=== PATIENT | male | born 1965 | race Caucasian/White ===

== ENCOUNTER 2020-01-27 17:47 | Emergency (ER) | payer MEDICARE, SELFPAY ==
[2020-01-27] VITALS (8 sets, daily range): BP systolic 105–135; BP diastolic 58–82; PULSE 105–131; RESP 16–23; TEMP 36.8–36.9; O2SAT 94–97
--- NOTE | ~2020-01-27 | XR_ITS ---
EXAMINATION: XR chest 1V portable EXAM DATE: 01/27/2020 18:26 INDICATION: Shortness of breath and weakness. TECHNIQUE: Portable AP frontal chest x-ray was obtained. There is no prior study for comparison. FINDINGS: There is a right-sided portacatheter overlying expected position. Linear bibasilar opacitie s most consistent with multifocal subsegmental atelectasis. The cardiomediastinal silhouette is promi nent but magnified on this AP technique. There is no pneumothorax suspected. There are no pleural eff usions. There are no osseous abnormalities identified. There is aortic arteriosclerosis. IMPRESSION: 1. Scattered linear bibasilar opacities likely atelectasis. Reviewed, dictated and finalized at location A.
--- NOTE | 2020-01-27 18:01 | ECG_ITS ---
Measurements Intervals [place] Rate: 109 P: 44 SD: 144 QRS: 99 QRSD: 84 T: 65 QT: 321 QTc: 433 Interpretive Statements SINUS TACHYCARDIA FREQUENT VENTRICULAR PREMATURE COMPLEXES RIGHT AXIS DEVIATION LOW QRS VOLTAGE IN PRECORDIAL LEADS BORDERLINE R WAVE PROGRESSION, ANTERIOR LEADS BASELINE WANDER- V3 ABNORMAL ECG Electronically Signed On 01-28-2020 7:04:50 CDT by Kiran Ordaz D.O.
[2020-01-27 18:15] LABS: Basophils Percent Auto 0.2 % (0.2-1.2); Eosinophils Absolute Auto 0.1 K/mm3 (0-0.3); Eosinophils Percent Auto 0.6 % (0-4.4); Hematocrit 37.2 % (42.0-52.0); Hemoglobin 12.5 g/dL (14.0-18.0); Immature Granulocyte Absolute 0.03 K/mm3 (0.00-0.031); Immature Granulocyte Percent A 0.3 % (0-0.5); Lymphocytes Absolute Auto 0.36 K/mm3 (0.9-3.2); Lymphocytes Percent Auto 4.2 % (18.3-44.2); Mean Corpuscular HGB Conc 33.6 g/dl (32-36); Mean Corpuscular Hemoglobin 30.7 pg (26-34); Mean Corpuscular Volume 91.4 fl (80-100); Mean Platelet Volume 8.8 fl (7.4-10.4); Monocytes Absolute Auto 0.1 K/mm3 (0.1-0.6); Neutrophils Absolute Auto 8.1 K/mm3 (1.3-6.7); Neutrophils Percent Auto 93.7 % (45.5-73.1); Platelet Count Result 250 k/mm3 (150-375); Red Blood Count 4.07 M/mm3 (4.6-6.20); Red Cell Distribution Width 13.9 % (11.5-14.5); White Blood Count 8.7 K/mm3 (4.5-10.0)
[2020-01-27 18:27] LABS: Alanine Aminotransferase 20 U/L (4-50); Albumin Level 3.7 g/dL (3.5-5.1); Alkaline Phosphatase 108 U/L (38-126); Aspartate Amino Transferase 36 U/L (17-59); Bilirubin,Total 1.2 mg/dL (0.2-1.3); Blood Urea Nitrogen 12 mg/dL (9-20); Calcium 8.9 mg/dL (8.4-10.2); Carbon Dioxide 27 mmol/L (22-30); Chloride 101 mmol/L (98-107); Estimated CRCL calculation 122 ml/min; Estimated Glomerular Filt Rate > 60; Glucose 132 mg/dL (75-110); Potassium 3.7 mmol/L (3.4-5.0); Sodium 137 mmol/L (137-145)
[2020-01-27 18:37] LABS: Lactic Acid Reflex 1.9 mmol/L (0.7-2.1)
[2020-01-27 18:43] LABS: Add Urine Microscopic? YES; Appearance Urine Clear (Clear); Bacteria Urine Trace /hpf; Bilirubin Urine Negative (Negative); Blood Urine Negative (Negative); Color Urine Yellow (Yellow); Glucose Urine UA Negative (Negative); Ketones Urine Negative (Negative); Leukocyte Esterase Ur Negative LEU/UL (Negative); Mucus Urine Moderate /lpf; Nitrate Urine Negative (Negative); Protein Urine 1+ mg/dL (Negative); RBC Urine 0-2 /hpf (0-2); Specific Grav Ur 1.027 (1.001-1.035); WBC Urine 0-3 /hpf
[2020-01-27] MEDS: ONDANSETRON INJ 4 MG/2 ML VIAL 8 MG IV PUSH (18:50)
[2020-01-27] MEDS: HYDROMORPHONE HCL 1 MG/ML INJ 0.5 MG IV PUSH (18:50)
--- NOTE | 2020-01-27 18:53 | PC.NURSE ---
Patient refusing to wear mask at this time, and refusing to wear BP cuff.
--- NOTE | 2020-01-27 19:01 | ED.WEAKNESS ---
HPI - Weakness General Chief complaint: Weakness Stated complaint: hard time breathing after chemo Time Seen by Provider: 01/27/20 18:59 History of Present Illness HPI Narrative: SOB throughout the day today. Started after chemo herapy for medastatic lung cancer earlier today. Associated with nause and weakness. He has had this increasingly frequently. He has no brochodialators or other mediacations for treatment. No fever. Related Data Home Medications Medication Instructions Recorded Confirmed acyclovir 400 mg PO BID 01/27/20 amlodipine 10 mg PO DAILY 01/27/20 hydrocodone-acetaminophen 1 tablet PO Q4-5H PRN 01/27/20 lidocaine HCl [Lidocaine Viscous] 01/27/20 Allergies Allergy/AdvReac Type Severity Reaction Status Date / Time No Known Allergies Allergy Unverified 01/27/20 17:55 Review of Systems Review of Systems: All systems reviewed & are unremarkable except as noted in HPI and below Constitutional: Constitutional: Denies chills, Denies fever(s) and Reports weakness Cardiovascular: Cardiovascular: Denies chest pain Respiratory: Respiratory: Reports chest congestion, Reports cough and Reports dyspnea Gastrointestinal: Gastrointestinal: Reports nausea Neurologic: Denies syncope, Denies focal weakness and Reports weakness PMFSH Past Medical History Medical History (Updated 01/28/20 @ 03:32 by James Kaur MD) Bronchogenic carcinoma Social History Social History (Updated 01/28/20 @ 03:33 by James Kaur MD) Smoking status: Former smoker Gender identity (if verbalized by the patient): Male Exam Const: General: alert and ill appearing chronically Nutritional Appearance: well nourished Orientation/consciousness: patient oriented x3 HENMT: Mouth: Yes dry mucous membranes Resp: Effort & Inspection: tachypneic Auscultation: rhonchi Cardio: Rate: tachycardic Rhythm: regular rhythm GI: GI Palp: Yes Soft to palpation and No Tenderness to palpation present (GI) Skin: General skin exam: normal color Neuro: General: patient oriented x3, moves all extremities and CN's II-XI intact bilaterally Speech: normal speech Extrem: General: normal to inspection Course Vital Signs Vital signs: Vital Signs Temperature 36.9 C 01/27/20 17:51 Pulse Rate 131 H 01/27/20 17:51 Respiratory Rate 16 01/27/20 17:51 Blood Pressure 135/82 01/27/20 17:51 Pulse Oximetry 96 01/27/20 17:51 Temperature 36.8 C 01/27/20 21:29 Pulse Rate 111 H 01/27/20 21:29 Respiratory Rate 21 H 01/27/20 21:29 Blood Pressure 115/74 01/27/20 21:29 Pulse Oximetry 97 01/27/20 21:29 MDM - Weakness MDM Narrative Medical decision making narrative: Feeling better after fluids and albuterol. Will give prescription upon discharge. Medical Records Attestation: I reviewed the patient's medical records. Lab Data Attestation: I reviewed the patient's lab results. Result diagrams: 01/27/20 18:10 01/27/20 18:10 Labs: Lab Results 01/27/20 01/27/20 01/27/20 Range/Units 18:10 18:10 18:19 WBC 8.7 (4.5-10.0) K/mm3 RBC 4.07 L (4.6-6.20) M/mm3 Hgb 12.5 L (14.0-18.0) g/dL Hct 37.2 L (42.0-52.0) % MCV 91.4 (80-100) fl MCH 30.7 (26-34) pg MCHC 33.6 (32-36) g/dl RDW 13.9 (11.5-14.5) % Plt Count 250 (150-375) k/mm3 MPV 8.8 (7.4-10.4) fl Immature Gran % (Auto) 0.3 (0-0.5) % Neut % (Auto) 93.7 H (45.5-73.1) % Lymph % (Auto) 4.2 L (18.3-44.2) % [place] % (Auto) 1.0 L (2.6-8.5) % Eos % (Auto) 0.6 (0-4.4) % Baso % (Auto) 0.2 (0.2-1.2) % Lymph # (Auto) 0.36 L (0.9-3.2) K/mm3 [place] # (Auto) 0.1 (0.1-0.6) K/mm3 Eos # (Auto) 0.1 (0-0.3) K/mm3 Baso # (Auto) 0.0 (0.0-0.1) K/mm3 Abs Immat Gran (auto) 0.03 (0.00-0.031) K/mm3 Absolute Neuts (auto) 8.1 H (1.3-6.7) K/mm3 Absolute Nucleated RBC 0.0 (0.0-0.012) K/mm3 Nucleated RBC % 0.0 (0.0-0.2) % Sodium
[2020-01-27] MEDS: ALBUTEROL SULFATE NEB 2.5 MG/0.5 ML INH 5 MG INHALATION (19:21)
[2020-01-27] MEDS: SODIUM CHLORIDE 0.9% IV 1,000 ML 999 ML IV CONT (19:31)
[2020-01-27] MEDS: METOCLOPRAMIDE HCL INJ 10 MG/2 ML VIAL IV PUSH (19:36)
== END 2020-01-27 21:32 | disposition home or self-care (01) ==
PROVIDERS: Emergency Medicine; Emergency Provider Emergency Medicine; PCP Internal Medicine
DX: R06.02 Shortness of breath (principal); E86.0 Dehydration; C34.90 Malignant neoplasm of unspecified part of unspecified bronchus or lung; Z87.891 Personal history of nicotine dependence; R00.0 Tachycardia, unspecified; I49.3 Ventricular premature depolarization; R94.31 Abnormal electrocardiogram [ECG] [EKG]
CPT/HCPCS: 36415; 71045; 80053; 81001; 83605; 85025; 87040; 93005; 94640; 96361; 96374; 96375; 99284; J1170; J2405; J2765; J7030